=== PATIENT | female | born 1995 | race Caucasian/White ===

== ENCOUNTER 2016-12-13 04:45 | Emergency (ER) | payer OTHER ==
[~2016-12-13] VITALS: Ht 180.3 cm; Wt 81.8 kg
[2016-12-13 04:53] VITALS: BP 117/77; PULSE 98; RESP 16; O2SAT 100
--- NOTE | 2016-12-13 05:05 | ED.REPORT ---
HPI-Abd Pain F Under 40 Date of Service Dec 13, 2016 ED Provider: Tremaine Cooney MD Patient is a 21 year old female with recent IUD placement who presents to the ED with cramping lower abdominal pain that began last night, worse in severity this morning. Patient reports getting up to urinate and that she experienced pain with urination. She then became dizzy and lightheaded when walking back to bed, which made her anxious. She developed shaking and diaphoresis. The patient reports that she had an IUD placed 2 weeks ago and that she has felt bloated since that time. She has a copper IUD which was placed at [facility]. She admits to an episode of severe abdominal cramping last week that prevented her from sleeping. The patient also believes that her symptoms could be due to constipation, as her pain feels similar to when she previously has developed constipation. However she does not often struggled with constipation. Patient denies nausea or vomiting. Nursing Notes Stated Complaint: ABDOMINAL PAIN/LIGHT HEADED Chief Complaint: Female Abdominal Pain Nursing Notes Reviewed: Yes Allergies: Coded Allergies: No Known Allergies (Unverified , 12/13/16) General Time Seen by MD: 05:03 Chief Complaint Abdominal pain Hx Obtained From: Patient Arrived By: Walk-in Sudden in Onset?: No Onset Occurred: Yesterday Symptom Duration: Since onset Progression since Onset: Gradually worsening Location: : Abdomen lower Quality: Painful Severity: Current: Moderate Severity: Maximum: Severe Recent Healthcare: No recent hospitalization, Recent doctor visit Similar Sx Previous: Yes Past Medical History Past Medical History recent IUD placement Past Surgical History none reported Smoking History Unknown if Ever Smoker Social History Other Social History: Good social support, Local resident Ambulatory Status Independent Review of Systems Review of Systems Note: + abdominal bloating GI: Reports: Abdominal pain, Constipation, Denies: Nausea, Vomiting Female: Reports: Dysuria, Pelvic pain Complete sys rev & neg: except as marked. Skin: Reports Diaphoresis Neurologic: Reports: Dizziness, Lightheaded, Shaking Psychiatric: Reports: Anxiety Physical Exam Initial Vital Signs Vital Signs (First) Date Time Temp Pulse Resp B/P Pulse Ox O2 Delivery O2 Flow Rate FiO2 12/13/16 04:53 37.0 98 16 117/77 100 Room Air Initial VS: Reviewed, Vital signs normal Head / Eyes: Atraumatic, Normocephalic, PERRL ENT: Mucous membranes moist, Conjunctiva normal, No scleral icterus Neck: Supple, Full range of motion Extremities: Vascular intact, Neuro intact Skin: Warm, Dry, No cyanosis Neurologic: Alert, Oriented, Nonfocal Psychiatric: Mood/affect normal, Behavior normal, Normal thought content General/Constitutional: Awake, Alert, No acute distress, Well hydrated, Cooperative Respiratory / Chest: Breath sounds NL, Breath sounds = bilat, No respiratory distress, No rales, No rhonchi, No wheezing Cardiovascular: Heart rate NL, Regular rhythm, Heart sounds NL, No murmurs Abdomen: Soft, No guarding, No rebound Tenderness/Guarding/Rebound: Positive: Tender suprapubic Back: No midline vertebral tend, No CVA tenderness Interpretation & Diagnostics Lab Results Interpretation Result Diagram: 12/13/16 0530 12/13/16 0530 Test 12/13/16 05:30 White Blood Count 10.1th/mm3 (3.8-10.1) Red Blood Count 4.06mil/mm3 (3.90-5.20) Hemoglobin 12.6g/dL (12.0-15.6) Hematocrit 37.9% (35.0-46.0) Mean Corpuscular Volume 93.3fL (81-100) Mean Corpuscular Hemoglobin 31.0pg (27.0-35.0) Mean Corpuscular Hemoglobin Concent 33.2% (32.0-37.0) Red Cell Distribution Width 11.8% (12.3-15.4) Platelet Count 241bil/L (150-400) Neutrophils (%) (Auto) 68.6% (40-74) Lymphocytes (%) (Auto) 16.0% (14-46) Monocytes (%) (Auto) 13.7% (4-12) Eosinophils (%) (Auto) 1.2% (0-5) Basophils (%) (Auto) 0.3% (0-3) Hold Blue Top Tube Received (Received) Sodium Level 137mEq/L (134-144) Potassium Level 4.0mEq/L (3.5-5.2) Chloride Level 99mEq/L (97-108) Carbon Dioxide Level 24mmol/L (18-29) Blood Urea Nitrogen 8mg/dL (6-20) Creatinine 0.68mg/dL (0.57-1.00) Estimat Glomerular Filtration Rate 154mL/min (>59) Glucose Level 104mg/dL (60-99) Calcium Level 8.8mg/dL (8.5-10.1) Magnesium Level 1.7mg/dL (1.6-2.6) Total Bilirubin 0.3mg/dL (0.0-1.2) Aspartate Amino Transf (AST/SGOT) 17U/L (0-50) Alanine Aminotransferase (ALT/SGPT) 15U/L (0-32) Alkaline Phosphatase 56U/L (25-150) Total Protein 6.9g/dL (6.4-8.4) Albumin 4.3g/dL (3.4-5.0) Lipase 17U/L (13-60) Hold Escobar Top Tube Received (Received) Re-Eval/Medical Decision Med Decision/Clinical Course 21-year-old female who had an IUD recently placed. Last few days she has had increased lower abdominal pain and bloating, and some urinary tract symptoms. This morning after urination she had a near syncopal episode. Lab work was initiated and she was even liter of saline. Her care is being turned over at change of shift to the oncoming doctor for further evaluation and treatment and disposition. Discharge & Departure Shift Change Sign-Out Patient Care Transferred: Yes Discussed Complaint(s): Yes Laboratory Evaluation: Ordered, not yet done Primary Impression: Abdominal pain Abdominal location: lower abdomen Qualified Code: R10.30 - Lower abdominal pain, unspecified Care Transferred to: Dr. Klein Care Transferred at: 06:00 Scribe Attestation Portions of this note were transcribed by Amalia Yoon. I, Dr. Cooney personally performed the history, physical exam and medical decision-making; I reviewed and confirmed the accuracy of the information in the transcribed note. Signed by: Pao Hadley, 12/13/2016 0543 Tremaine Cooney MD Dec 13, 2016 05:05 Amalia Yoon Dec 13, 2016 05:16
[2016-12-13] MEDS ORDERED: 0.9% Sodium Chloride 1,000 ML IV ONE (05:40)
[2016-12-13 05:53] LABS: BASOPHILS % (AUTO) 0.3 % (0-3); EOSINOPHILS % (AUTO) 1.2 % (0-5); MONOCYTES % (AUTO) 13.7 % (4-12); Mean Corpuscular Volume 93.3 fL (81-100); NEUTROPHILS % (AUTO) 68.6 % (40-74); Platelet Count 241 bil/L (150-400)
[2016-12-13 06:21] LABS: Magnesium 1.7 mg/dL (1.6-2.6)
[2016-12-13 06:39] LABS: APPEARANCE,URINE HAZY (CLEAR,HAZY); COLOR,URINE YELLOW (YELLOW); OCCULT BLOOD,URINE MODERATE (NEGATIVE); UROBILINOGEN,URINE NORMAL (NORMAL)
[2016-12-13] MEDS ORDERED: Nitrofurantoin Monohyd-Macrocryst 100 mg Capsule PO ONE (07:05)
[2016-12-13] MEDS ORDERED: PHEN-683 PO (07:26)
[2016-12-13] MEDS ORDERED: NITR100 PO (07:26)
[2016-12-13 07:48] VITALS: BP 100/62; PULSE 79; O2SAT 96
== END 2016-12-13 07:45 | disposition home or self-care (01) ==
LOC: SED 04:45
DX: N39.0 Urinary tract infection, site not specified (principal); R55 Syncope and collapse; R42 Dizziness and giddiness; R25.1 Tremor, unspecified; R61 Generalized hyperhidrosis; R14.0 Abdominal distension (gaseous); K59.00 Constipation, unspecified; Z97.5 Presence of (intrauterine) contraceptive device
CPT/HCPCS: 36415; 80053; 81000; 81025; 83690; 83735; 85025; 87086; 87088; 96360; 99285; J7030

== ENCOUNTER 2016-12-17 00:14 | Emergency (ER) | payer OTHER ==
[~2016-12-17] VITALS: Ht 180.3 cm; Wt 79.5 kg
[~2016-12-17 00:14] MED LIST: NITR100 PO; PHEN-683 PO
[2016-12-17 00:19] VITALS: BP 121/82; PULSE 86; RESP 18; O2SAT 100
--- NOTE | 2016-12-17 00:34 | ED.REPORT ---
HPI-Abd Pain F Under 40 Date of Service Dec 17, 2016 ED Provider: Grady العراقي MD Patient is a 21 year old female with recent IUD placement on November 21 who presents to the ED complaining of worsening abdominal pain and bloating that began 5 days ago. Patient was seen in the ED on 12/13/2016 for a UTI and was started on Macrobid. Patient states that her symptoms have not improved since that time and she believes that her symptoms are due to her IUD. Patient reports associated vaginal discharge, nausea, dysuria, and radiation of her pain to her back. She is requesting to have her IUD removed. She has a copper IUD which was placed at [facility] and states that she has felt bloated since it was inserted. Patient is still able to feel the strings. Patient denies a known metal allergy. Nursing Notes Stated Complaint: ABDOMINAL PAIN Chief Complaint: Female Abdominal Pain Nursing Notes Reviewed: Yes Allergies: Coded Allergies: No Known Allergies (Unverified , 12/13/16) Scheduled Doxycycline Monohyd (Doxycycline Monohyd) 100 Mg Tablet 100 MG PO BID Metronidazole (Flagyl) 500 Mg Tablet 500 MG PO Q8H Nitrofurantoin Monohyd/M-Cryst (MacroBid) 100 Mg Capsule 100 MG PO BID Scheduled PRN Naproxen (Naprosyn) 500 Mg Tablet 500 MG PO BID PRN PRN For Pain Phenazopyridine (Pyridium) 100 Mg Tablet 100 MG PO TID PRN PRN For Pain General Time Seen by MD: 00:34 Chief Complaint Abdominal pain Hx Obtained From: Patient Arrived By: Walk-in Sudden in Onset?: No Onset Occurred: 5 days ago Symptom Duration: Since onset Progression since Onset: Gradually worsening Location: : Suprapubic Quality: Painful Severity: Current: Moderate Severity: Maximum: Severe Recent Healthcare: No recent hospitalization, Recent doctor visit Similar Sx Previous: Yes Past Medical History Past Medical History recent IUD placement Bipolar disorder depression Past Surgical History Adenoidectomy deviated septum Smoking History Unknown if Ever Smoker Social History Other Social History: Good social support, Local resident Ambulatory Status Independent Review of Systems Review of Systems Note: +abdominal bloating GI: Reports: Abdominal pain, Nausea, Denies: Vomiting Female: Reports: Dysuria, Pelvic pain, Vaginal discharge, Denies: Musculoskeletal: Reports: Back pain Complete sys rev & neg: except as marked. Physical Exam Initial Vital Signs Vital Signs (First) Date Time Temp Pulse Resp B/P Pulse Ox O2 Delivery O2 Flow Rate FiO2 12/17/16 00:19 36.1 86 18 121/82 100 Room Air Initial VS: Reviewed Head / Eyes: Atraumatic, Normocephalic, PERRL ENT: Conjunctiva normal, No scleral icterus Neck: Supple, Full range of motion Extremities: Vascular intact, Neuro intact Skin: Warm, Dry, No cyanosis Neurologic: Alert, Oriented, Nonfocal Psychiatric: Mood/affect normal, Behavior normal, Normal thought content General/Constitutional: Awake, Alert, No acute distress Respiratory / Chest: No respiratory distress Cardiovascular: Heart rate NL, Regular rhythm Abdomen: Soft, Non-tender Back: Painless range of motion Female Genitourinary: Reconstructive Surgeon present ([employer] Student) Vaginal Bleeding / Discharge: Positive: Discharge copious (purulent mucus) Pelvic Exam: Positive: IUD present (removed with ring forceps) IUD string is visible, with IUD appearing to be in the cervical canal. IUD was placed low or is in the process of being expelled. IUD is not in desired position. No bleeding after removal of the IUD. Interpretation & Diagnostics Lab Results Interpretation Result Diagram: 12/17/16 0143 12/17/16 0143 Test 12/17/16 01:31 12/17/16 01:43 12/17/16 02:33 Urine Color Yellow (YELLOW) Urine Appearance Clear (CLEAR,HAZY) Urine pH 8.5 (5.0-8.0) Urine Specific [place] 1.015 (1.003-1.035) Urine Protein Negativemg/dL (NEG,TRACE) Urine Glucose (UA) Negativemg/dL (NEGATIVE) Urine Ketones Negativemg/dL (NEGATIVE) Urine Occult Blood Small (NEGATIVE) Urine Nitrite Negative (NEGATIVE) Urine Bilirubin Negative (NEGATIVE) Urine Urobilinogen Normalmg/dL (NORMAL) Urine Leukocyte Esterase Small (NEGATIVE) Urine RBC 0-2/hpf (0-2) Urine WBC 0-5/hpf (0-5) Urine Epithelial Cells Moderate/hpf (NONE-MOD) Urine Crystals None seen (NONE SEEN) Urine Bacteria None/hpf (NONE-FEW) Urine Hyaline Casts None/lpf (NONE) Urine Granular Casts None seen (NONE SEEN) Urine Waxy Casts None seen (NONE SEEN) Urine Red Blood Cell Casts None seen (NONE SEEN) Urine White Blood Cell Casts None seen (NONE SEEN) Urine Mucus None seen (None Seen) Urine Trichomonas None seen (NONE SEEN) Urine Yeast None (NONE SEEN) Urine Culture Reflexed Indicated White Blood Count 9.4th/mm3 (3.8-10.1) Red Blood Count 4.03mil/mm3 (3.90-5.20) Hemoglobin 12.5g/dL (12.0-15.6) Hematocrit 37.7% (35.0-46.0) Mean Corpuscular Volume 93.5fL (81-100) Mean Corpuscular Hemoglobin 31.0pg (27.0-35.0) Mean Corpuscular Hemoglobin Concent 33.2% (32.0-37.0) Red Cell Distribution Width 11.7% (12.3-15.4) Platelet Count 298bil/L (150-400) Neutrophils (%) (Auto) 72.0% (40-74) Lymphocytes (%) (Auto) 14.6% (14-46) Monocytes (%) (Auto) 11.1% (4-12) Eosinophils (%) (Auto) 1.9% (0-5) Basophils (%) (Auto) 0.2% (0-3) Prothrombin Time 10.3sec (8.1-12.5) Prothromb Time International Ratio 0.96ratio Sodium Level 143mEq/L (134-144) Potassium Level 3.9mEq/L (3.5-5.2) Chloride Level 102mEq/L (97-108) Carbon Dioxide Level 29mmol/L (18-29) Blood Urea Nitrogen 7mg/dL (6-20) Creatinine 0.59mg/dL (0.57-1.00) Estimat Glomerular Filtration Rate 181mL/min (>59) Glucose Level 96mg/dL (60-99) Calcium Level 9.0mg/dL (8.5-10.1) Magnesium Level 2.1mg/dL (1.6-2.6) Total Bilirubin 0.2mg/dL (0.0-1.2) Aspartate Amino Transf (AST/SGOT) 12U/L (0-50) Alanine Aminotransferase (ALT/SGPT) 10U/L (0-32) Alkaline Phosphatase 58U/L (25-150) Total Protein 7.2g/dL (6.4-8.4) Albumin 4.3g/dL (3.4-5.0) Lipase 23U/L (13-60) Hold Escobar Top Tube Received (Received) Procedures IUD REMOVAL Time: 227 Preformed by: ED physician Consent/Setup: Consent from patient. Time-out preformed. Female property maintenance technician present. Procedure: IUD removed with ring forceps. Post-Procedure: Patient tolerated procedure well. Minimal bleeding after removal. Condition improved. Re-Eval/Medical Decision Med Decision/Clinical Course Med Decision/Clinical Course: 21-year-old with progressive discomfort after placement of IUD. She has a purulent discharge and a mildly tender abdomen. IUD was removed per her request. Cultures are pending. Antibiotics changed from UTI two endometritis, with Rocephin once here, and Doxy and Flagyl to follow Source of Hx: Old records Re-Evaluation/Progress : Time of Eval: 02:33 Patient Status: Condition improved Re-Evaluation/Progress Note: IUD removed. Patient understands and agrees with the plan to be discharged home. Discharge instructions and follow-up discussed. All questions were addressed. Return to the ED warnings given. Counseled Regarding: Diagnosis, Need for follow-up, When/why to return to ED Discharge & Departure Primary Impression: Encounter for IUD removal Additional Impression: Endometritis Disposition: Home Discharge Condition All VS Reviewed: Yes Condition: Stable Patient Instructions: Endometritis (DC) Additional Instructions: Began Flagyl three times daily for seven days. Began doxycycline twice daily for ten days. Naprosyn twice daily or ibuprofen four times daily as needed for cramps and pain. Follow-up with your doctor in the office. Use an alternative control method until you decide on a usp method. Scribe Attestation Portions of this note were transcribed by Amalia Yono. I, Dr. العراقي personally performed the history, physical exam and medical decision-making; I reviewed and confirmed the accuracy of the information in the transcribed note. Signed by: Pao Hadley, 12/17/2016 0317 Grady العراقي MD Dec 17, 2016 00:34 Amalia Yoon Dec 17, 2016 01:18
[2016-12-17] MEDS ORDERED: 0.9% Sodium Chloride 1,000 ML IV ONE (01:17)
[2016-12-17] MEDS ORDERED: Ondansetron 2 mg/mL 2 mL Inj IVPUSH ONE (01:20)
[2016-12-17 01:50] LABS: APPEARANCE,URINE CLEAR (CLEAR,HAZY); COLOR,URINE YELLOW (YELLOW); OCCULT BLOOD,URINE SMALL (NEGATIVE); PH,URINE 8.5 (5.0-8.0); UROBILINOGEN,URINE NORMAL (NORMAL)
[2016-12-17 01:55] LABS: BASOPHILS % (AUTO) 0.2 % (0-3); EOSINOPHILS % (AUTO) 1.9 % (0-5); MONOCYTES % (AUTO) 11.1 % (4-12); Mean Corpuscular Volume 93.5 fL (81-100); Platelet Count 298 bil/L (150-400)
[2016-12-17 02:17] LABS: INR 0.96 ratio
[2016-12-17] MEDS: HYDROmorphone 0.5 mg/0.5 mL iSecure Syringe IVPUSH PRN ×2 (02:22→03:02)
[2016-12-17 02:27] LABS: Magnesium 2.1 mg/dL (1.6-2.6)
[2016-12-17] MEDS ORDERED: cefTRIAXone Inj 2,000 MG in Dextrose 5% Minibag Plus 50 ML IV ONE (02:40)
[2016-12-17] MEDS ORDERED: METR500T PO (02:42)
[2016-12-17] MEDS ORDERED: DOXY-232 PO (02:42)
[2016-12-17] MEDS ORDERED: NAPR500T PO (02:43)
[2016-12-17 03:56] VITALS: BP 106/59; PULSE 91; RESP 18; O2SAT 96
== END 2016-12-17 03:54 | disposition home or self-care (01) ==
LOC: SED 00:14
DX: Z30.432 Encounter for removal of intrauterine contraceptive device (principal); N71.9 Inflammatory disease of uterus, unspecified
CPT/HCPCS: 36415; 58301; 80053; 81000; 81025; 83690; 83735; 85025; 85610; 87070; 87086; 87088; 87147; 87210; 87491; 87591; 96361; 96365; 96375; 96376; 99284; J0696; J1170; J1885; J2405; J7030